=== PATIENT | female | born 1945 | race Native Hawaiian/Other Pacific Islander ===

== ENCOUNTER 2016-09-24 12:42 | Outpatient (CLI) | payer OTHER, MEDICARE ==
[2016-09-24 13:12] LABS: PLATELET COUNT 512 K/uL (152-353)
[2016-09-24 13:52] LABS: POTASSIUM 4.6 mmol/L (3.6-5.2); SODIUM 141 mmol/L (136-145)
== END 2016-09-24 19:09 | disposition home or self-care (01) ==
LOC: LAB 12:42
PROVIDERS: Nurse Practitioner Family
DX: E78.4 Other hyperlipidemia (principal); I10 Essential (primary) hypertension; E03.8 Other specified hypothyroidism; Z79.899 Other long term (current) drug therapy; Z51.81 Encounter for therapeutic drug level monitoring
CPT/HCPCS: 80053; 80061; 83036; 84439; 84443; 85027

== ENCOUNTER 2016-10-08 13:14 | Outpatient (CLI) | payer OTHER, MEDICARE ==
[2016-10-08 13:52] LABS: PLATELET COUNT 456 K/uL (152-353)
== END 2016-10-08 19:10 | disposition home or self-care (01) ==
LOC: LAB 13:14
PROVIDERS: Nurse Practitioner Family
DX: D64.89 Other specified anemias (principal)
CPT/HCPCS: 85027

== ENCOUNTER 2016-12-09 14:53 | Outpatient (CLI) | payer OTHER, MEDICARE ==
[2016-12-09 15:36] LABS: PLATELET COUNT 314 K/uL (152-353)
[2016-12-09 15:41] LABS: POTASSIUM 4.2 mmol/L (3.6-5.2); SODIUM 141 mmol/L (136-145)
== END 2016-12-09 19:10 | disposition home or self-care (01) ==
LOC: LAB 14:53
PROVIDERS: Nurse Practitioner Family
DX: I10 Essential (primary) hypertension (principal); E78.4 Other hyperlipidemia; E03.8 Other specified hypothyroidism; R53.83 Other fatigue; R53.81 Other malaise; Z79.899 Other long term (current) drug therapy; Z51.81 Encounter for therapeutic drug level monitoring
CPT/HCPCS: 80053; 80061; 83036; 84436; 84443; 85027

== ENCOUNTER 2017-03-10 13:53 | Outpatient (CLI) | payer OTHER ==
[2017-03-10 14:27] LABS: PLATELET COUNT 283 K/uL (152-353)
[2017-03-10 14:41] LABS: POTASSIUM 4.5 mmol/L (3.6-5.2)
== END 2017-03-10 15:00 | disposition home or self-care (01) ==
LOC: LAB 13:53
PROVIDERS: Nurse Practitioner Family
DX: R53.81 Other malaise (principal); R53.83 Other fatigue; E78.4 Other hyperlipidemia; E03.8 Other specified hypothyroidism; I10 Essential (primary) hypertension; D64.89 Other specified anemias; Z79.899 Other long term (current) drug therapy; E55.9 Vitamin D deficiency, unspecified; Z51.81 Encounter for therapeutic drug level monitoring
CPT/HCPCS: 80053; 80061; 82306; 82607; 83036; 84436; 84443; 85027

== ENCOUNTER 2017-06-17 14:50 | Outpatient (CLI) | payer OTHER ==
[2017-06-17 15:51] LABS: PLATELET COUNT 291 K/uL (152-353)
[2017-06-17 16:11] LABS: POTASSIUM 4.4 mmol/L (3.6-5.2)
== END 2017-06-17 21:13 | disposition home or self-care (01) ==
LOC: LAB 14:50
PROVIDERS: Nurse Practitioner Family
DX: R53.81 Other malaise (principal); E78.4 Other hyperlipidemia; E03.8 Other specified hypothyroidism; R53.82 Chronic fatigue, unspecified; Z79.899 Other long term (current) drug therapy; Z51.81 Encounter for therapeutic drug level monitoring; D64.89 Other specified anemias
CPT/HCPCS: 80053; 80061; 83036; 84436; 84443; 85027

== ENCOUNTER 2017-10-19 14:07 | Outpatient (CLI) | payer OTHER ==
[2017-10-19 14:23] LABS: PLATELET COUNT 291 K/uL (152-353)
[2017-10-19 16:19] LABS: POTASSIUM 4.4 mmol/L (3.6-5.2); SODIUM 144.7 mmol/L (136-145)
[2017-10-19 16:20] LABS: LDL CHOLESTEROL 66.3 mg/dL (0-99*)
== END 2017-10-19 19:51 | disposition home or self-care (01) ==
LOC: LAB 14:07
PROVIDERS: Nurse Practitioner Family
DX: R53.81 Other malaise (principal); E78.4 Other hyperlipidemia; E03.8 Other specified hypothyroidism; I10 Essential (primary) hypertension; R53.83 Other fatigue; Z79.899 Other long term (current) drug therapy; Z51.81 Encounter for therapeutic drug level monitoring; D64.89 Other specified anemias
CPT/HCPCS: 80053; 80061; 83036; 84436; 84443; 85027

== ENCOUNTER 2018-02-02 13:56 | Outpatient (CLI) | payer OTHER ==
[2018-02-02 14:33] LABS: PLATELET COUNT 318 K/uL (152-353)
[2018-02-02 14:54] LABS: POTASSIUM 4.4 mmol/L (3.6-5.2)
== END 2018-02-02 21:47 | disposition home or self-care (01) ==
LOC: LAB 13:56
PROVIDERS: Nurse Practitioner Family
DX: E78.4 Other hyperlipidemia (principal); E03.8 Other specified hypothyroidism; I10 Essential (primary) hypertension; R53.81 Other malaise; R53.82 Chronic fatigue, unspecified; Z79.899 Other long term (current) drug therapy; Z51.81 Encounter for therapeutic drug level monitoring; D64.89 Other specified anemias
CPT/HCPCS: 80053; 80061; 83036; 84436; 84443; 85027

== ENCOUNTER 2019-01-31 12:07 | Outpatient (CLI) | payer OTHER, MEDICARE ==
[2019-01-31 12:45] LABS: PLATELET COUNT 278 K/uL (152-353)
== END 2019-01-31 19:19 | disposition home or self-care (01) ==
LOC: RAD 12:07
PROVIDERS: Orthopaedic Surgery
DX: M25.552 Pain in left hip (principal); R60.0 Localized edema; I82.492 Acute embolism and thrombosis of other specified deep vein of left lower extremity
CPT/HCPCS: 36415; 85027; 85651; 86140

== ENCOUNTER 2019-02-14 09:36 | Outpatient (CLI) | payer OTHER, MEDICARE | END 2019-02-14 19:01 | disposition home or self-care (01) | LOC: US 09:36 | DX: R22.42 Localized swelling, mass and lump, left lower limb (principal); R19.09 Other intra-abdominal and pelvic swelling, mass and lump; K56.699 Other intestinal obstruction unspecified as to partial versus complete obstruction ==

== ENCOUNTER 2019-02-15 10:29 | Outpatient (CLI) | payer OTHER, MEDICARE | END 2019-02-15 23:37 | disposition home or self-care (01) | LOC: CT 10:29 | DX: R22.42 Localized swelling, mass and lump, left lower limb (principal); R19.09 Other intra-abdominal and pelvic swelling, mass and lump ==

== ENCOUNTER 2019-04-18 11:40 | Outpatient (CLI) | payer OTHER, MEDICARE ==
[2019-04-18 12:19] LABS: PLATELET COUNT 297 K/uL (152-353)
[2019-04-18 12:30] LABS: POTASSIUM 4.3 mmol/L (3.6-5.2)
== END 2019-04-18 23:59 ==
LOC: CT 11:40 → US 11:40
PROVIDERS: Internal Medicine
DX: R60.0 Localized edema (principal); N18.3 Chronic kidney disease, stage 3 (moderate); M79.605 Pain in left leg; R19.09 Other intra-abdominal and pelvic swelling, mass and lump
CPT/HCPCS: 36415; 80053; 81000; 82306; 82330; 82570; 83735; 83970; 84100; 84155; 85027; Q9963